=== PATIENT | male | born 1965 | race Hispanic/Latino ===

== ENCOUNTER 2019-03-09 09:12 | Day surgery (SDC) | payer BC ==
--- NOTE | 2019-03-09 10:00 | Anesthesia Consultation ---
Anesthesia Consult and Med Hx Date of service: 03/09/19 - Airway Anesthetic Teeth Evaluation: Good ROM Head & Neck: Adequate Mental/Hyoid Distance: Adequate Mallampati Class: Class II Intubation Access Assessment: Good - Pulmonary Exam CTA: Yes - Cardiac Exam Cardiac Exam: RRR - Pre-Operative Health Status ASA Pre-Surgery Classification: ASA2 Proposed Anesthetic Plan: General (35 years smoking a pack a day ) - Pulmonary Hx Smoking: Yes (1 PPD X 35 YRS) - Cardiovascular System Hx Hypertension: No - Other Systems Hx Cancer: No
--- NOTE | 2019-03-09 10:01 | Anesthesia Day of Surgery ---
Anesthesia Day of Surgery - Day of Surgery Patient Examined: Yes Patient H&P Reviewed: Yes Patient is NPO: Yes
[2019-03-09] MEDS ORDERED: ZOFRAN IV PRN (10:02)
[2019-03-09] MEDS ORDERED: DILAUDID IV PRN (10:02)
--- NOTE | 2019-03-09 10:54 | XRay Report ---
ABDOMEN 1 VIEW(S) INDICATION / CLINICAL INFORMATION: Left nephrolithiasis. COMPARISON: None available. FINDINGS: TUBES / LINES: A left ureteral stent is in position. Calcification along the proximal stent suggests a stone in the proximal left ureter. No obvious right nephrolithiasis. BOWEL GAS PATTERN: No significant abnormality. FREE AIR / EXTRALUMINAL GAS: None seen. ADDITIONAL FINDINGS: No significant additional findings. IMPRESSION: Left nephrolithiasis as described. Signer Name: Rogelio Abel Jr, MD Signed: 03/09/2019 10:49 AM Workstation Name: [id number]
[2019-03-09] MEDS ORDERED: LACTATED RINGERS 1,000 ML IV SCH (11:00)
[2019-03-09] MEDS ORDERED: ANCEF/STERILE WATER 2 GM/20 ML IV NR (11:00)
[2019-03-09] MEDS ORDERED: VERSED IV NR (11:00)
[2019-03-09] MEDS ORDERED: XYLOCAINE MPF 2% ONE (11:26)
[2019-03-09] MEDS ORDERED: VERSED ONE (11:27)
[2019-03-09] MEDS ORDERED: DIPRIVAN 10 MG/ML IV ONE (11:27)
[2019-03-09] MEDS ORDERED: SUBLIMAZE ONE (11:27)
[2019-03-09] MEDS ORDERED: ZOFRAN ONE (11:41)
--- NOTE | 2019-03-09 11:50 | Post Operative Note ---
Date of procedure: 03/09/19 Pre-op diagnosis: ureteral stone Post-op diagnosis: same Findings: stone along stent Procedure: L eswl Anesthesia: JOHAN Surgeon: KHALIDA CHOUDHARY Estimated blood loss: none Pathology: none Condition: stable Disposition: PACU
--- NOTE | 2019-03-09 11:50 | Discharge Summary ---
Short Stay Discharge Plan Activity: other (no straining ) Weight Bearing Status: Full Weight Bearing Diet: low fat, low cholesterol, low salt Special Instructions: other (inc fluids ) Follow up with: ERIC ANDERSON [Other] - 7 Days KHALIDA CHOUDHARY MD [Staff Physician] - 7 Days
[2019-03-09 12:35] VITALS: BP 127/76
--- NOTE | 2019-03-09 12:40 | Operative Report ---
PREOPERATIVE DIAGNOSIS: Hematuria, left upper ureteral stone. POSTOPERATIVE DIAGNOSES: Hematuria, left upper ureteral stone. PROCEDURE: Lithotripsy with previous stent placement. SURGEON: Dr. Mauro. ANESTHESIA: General. FINDINGS: This is a gentleman who presented with hematuria. He was found to have a large stone in the upper left ureter. A stent was placed. He had some difficulty with some stent colic, which is much improved, so we will leave the stent. He now presents for procedure. DESCRIPTION OF PROCEDURE: The patient was brought to lithotripsy suite and placed on the table. Following induction of anesthesia, the stone was well localized alongside the stent. Shocks were begun at 1 kV, increased to maximum of 9 kV. Renal pause was carried out. 2500 shocks were given. The stone clearly spread out a little bit. Hopefully, it has fragmented. Otherwise, he will need an ureteroscopy with a laser. The patient understands that. We decided not to remove the stent. He was brought to recovery room in stable condition. JOB# [id number] CHANELLE/TERE
--- NOTE | 2019-03-09 13:32 | Post Anesthesia Evaluation ---
- Post Anesthesia Evaluation Patient Participated: Yes Airway Patent: Yes Stable Respiratory Function: Yes Nausea/Vomiting: No Temp > 96.8F: Yes Pain Manageable: Yes Adequeate Hydration: Yes Anesthesia Complications: No Block Receding Appropriately: Not Applicable Patient on Ventilator: No
== END 2019-03-09 13:37 | disposition home or self-care (01) ==
LOC: OR 09:12
PROVIDERS: ATTEND Urology
DX: N21.0 Calculus in bladder (principal); R31.0 Gross hematuria; F17.210 Nicotine dependence, cigarettes, uncomplicated; G43.909 Migraine, unspecified, not intractable, without status migrainosus; Z79.899 Other long term (current) drug therapy; Z88.5 Allergy status to narcotic agent; Z87.440 Personal history of urinary (tract) infections; Z98.890 Other specified postprocedural states
CPT/HCPCS: 50590; 74018; J2250; J2405; J2704; J3010; J7120

== ENCOUNTER 2019-03-22 13:34 | Day surgery (SDC) | payer BC ==
[2019-03-22] MEDS ORDERED: LACTATED RINGERS 1,000 ML IV SCH (14:00)
[2019-03-22] MEDS ORDERED: ANCEF/STERILE WATER 2 GM/20 ML IV NR (14:34)
[2019-03-22] MEDS ORDERED: ANCEF/STERILE WATER 2 GM/20 ML 2 GM/20 ML SYRINGE IV ONE (14:34)
[2019-03-22] MEDS ORDERED: VERSED IV NR (14:35)
[2019-03-22] MEDS ORDERED: ZOFRAN ONE (14:45)
[2019-03-22] MEDS ORDERED: XYLOCAINE MPF 2% ONE (14:45)
[2019-03-22] MEDS ORDERED: SUBLIMAZE ONE (14:46)
[2019-03-22] MEDS ORDERED: DIPRIVAN 10 MG/ML IV ONE (14:46)
--- NOTE | 2019-03-22 14:47 | Post Operative Note ---
Date of procedure: 03/22/19 Pre-op diagnosis: left ureteral stone Post-op diagnosis: same Findings: fragments Procedure: cysto ureteroscopy laser stent Anesthesia: GETA Estimated blood loss: none Pathology: none Condition: stable Disposition: PACU
--- NOTE | 2019-03-22 14:48 | Discharge Summary ---
Short Stay Discharge Plan Activity: other (no straining ) Weight Bearing Status: Full Weight Bearing Diet: low fat, low cholesterol, low salt Special Instructions: other (inc fluids ) Durable Medical Equipment Needed Upon Discharge: other (has j stent ) Follow up with: PRIMARY CARE, [Primary Care Provider] - 7 Days KHALIDA CHOUDHARY MD [Staff Physician] - 7 Days
[2019-03-22] MEDS ORDERED: WATER FOR IRRIG STERILE IR ONE (14:51)
[2019-03-22] MEDS ORDERED: DECADRON ONE (15:03)
[2019-03-22] MEDS ORDERED: PHENYLEPHRINE/NS Syringe 1,000 MCG/10 ML IV ONE (15:07)
--- NOTE | 2019-03-22 16:02 | Anesthesia Consultation ---
Anesthesia Consult and Med Hx Date of service: 03/22/19 - Airway Anesthetic Teeth Evaluation: Good ROM Head & Neck: Adequate Mental/Hyoid Distance: Adequate Mallampati Class: Class II Intubation Access Assessment: Probably Good - Pulmonary Exam CTA: Yes - Cardiac Exam Cardiac Exam: RRR - Pre-Operative Health Status ASA Pre-Surgery Classification: ASA2 Proposed Anesthetic Plan: General - Pulmonary Hx Smoking: Yes (1 PPD X 35 YRS) Hx Respiratory Symptoms: No - Cardiovascular System Hx Hypertension: No - Central Nervous System CVA: No - Gastrointestinal Hx Gastroesophageal Reflux Disease: No - Endocrine Hx Renal Disease: No Hx Liver Disease: No Hx Insulin Dependent Diabetes: No Hx Non-Insulin Dependent Diabetes: No Hx Thyroid Disease: No - Other Systems Hx Obesity: No
--- NOTE | 2019-03-22 16:02 | Anesthesia Day of Surgery ---
Anesthesia Day of Surgery - Day of Surgery Patient Examined: Yes Patient H&P Reviewed: Yes Patient is NPO: Yes
[2019-03-22] MEDS ORDERED: DILAUDID ONE ×2 (16:06→16:21)
[2019-03-22] MEDS: DILAUDID IV PRN ×2 (16:21→16:31)
--- NOTE | 2019-03-22 16:33 | Operative Report ---
PREOPERATIVE DIAGNOSES: [place]strasse ureteral stones, renal stone. POSTOPERATIVE DIAGNOSES: [place] ureteral stones, renal stone. PROCEDURE: Cystoscopy, left retrograde, left ureteroscopy with laser of stones, nephroscopy with laser of stone. SURGEON: Dr. Mauro. ANESTHESIA: General. FINDINGS: This is a gentleman with a large stone that was treated with lithotripsy and stenting. He now presents for second stage. DESCRIPTION OF PROCEDURE: The patient was brought to the operating room and placed on the operating table. Following induction of anesthesia, placed in lithotomy position, prepped and draped in usual sterile fashion. The stent was withdrawn from the meatus and a wire coiled in the kidney. Using a double lumen ureteral catheter, a second safety wire was placed. Flexible ureteroscopy showed stones along the ureter. We lasered them intermittently, but we tried to get up to the kidney. Once we got in the kidney, we were able to laser the stones and laser the ureteral stones as we went through. The first we started with the ureteral stone because it was quite tight to get past it and then we had to place a wire, but again got up to the kidney and lasered any small stones that we saw. The patient tolerated the procedure well. A 6-[place] double-J coiled in the upper pole. We left the string. He tolerated the procedure well and brought to recovery in stable condition. JOB# [id number] CHANELLE/TERE
[2019-03-22] MEDS ORDERED: NORCO 7.5/325 PO PRN (16:49)
[2019-03-22 18:28] VITALS: BP 135/76
--- NOTE | 2019-03-22 18:42 | Post Anesthesia Evaluation ---
- Post Anesthesia Evaluation Patient Participated: Yes Airway Patent: Yes Stable Respiratory Function: Yes Nausea/Vomiting: No Temp > 96.8F: Yes Pain Manageable: Yes Adequeate Hydration: Yes Anesthesia Complications: No
--- NOTE | 2019-03-22 19:41 | Fluoroscopy Report ---
CLINICAL INDICATION: Kidney stones TECHNICAL DATA: Fluoroscopy time 2.6 minutes and nonspot images were obtained FINDINGS: Excellent visualization of the left ureter left collecting system. Double ended pigtail stent placed at the end of the procedure. IMPRESSION: Retrograde pyelogram with double ended pigtail stent placed left ureter Signer Name: George Patel MD Signed: 03/22/2019 7:36 PM Workstation Name: [id number]
== END 2019-03-22 18:10 | disposition home or self-care (01) ==
LOC: OR 13:34
PROVIDERS: ATTEND Urology
DX: N13.2 Hydronephrosis with renal and ureteral calculous obstruction (principal); F17.210 Nicotine dependence, cigarettes, uncomplicated; G43.909 Migraine, unspecified, not intractable, without status migrainosus; Z79.899 Other long term (current) drug therapy; Z87.440 Personal history of urinary (tract) infections; Z98.890 Other specified postprocedural states; Z88.5 Allergy status to narcotic agent
CPT/HCPCS: 52356; 74420; A4217; C1758; C1769; C2617; J0690; J1100; J1170; J2250; J2370; J2405; J2704; J3010; J7120; Q9967